=== PATIENT | male | born 1945 | race African-American/Black ===

== ENCOUNTER 2018-12-14 19:29 | Observation (INO) ==
[2018-12-14] MEDS ORDERED: LABETALOL 20 MG/4 ML SYRINGE IV STA ×2 (20:04→21:06)
[2018-12-14 20:19] LABS: Basophils % 0.4 % (0.0-0.8); Eosinophils # 0.2 10*3/uL (0.0-0.87); Eosinophils % 2.2 % (0.00-10.9); Hematocrit 46.1 VOL% (42.0-52.0); Hemoglobin 14.7 GM/DL (14.0-18.0); Immature Granulocytes % 0.4 %; Immature Granulocytes Absolute 0.03 #; Lymphocytes # 2.1 10*3/uL (1.4-4.0); Lymphocytes % 30.6 % (21.2-54.2); Mean Corpuscular HGB Conc 31.9 GM/DL (32-36); Mean Corpuscular Volume 75.7 FL (87-102); Mean Platelet Volume 10.5 FL (9.6-12.0); Neutrophils % 55.4 % (38.7-73.9); Platelet Count 199 T/CUMM (130-400); Red Blood Count 6.09 MC/CUMM (3.8-5.5); Red Cell Distribution Width 16.8 % (9.3-17.3); White Blood Count 6.7 T/CUMM (4-12)
[2018-12-14 20:25] LABS: Apearance,Urine CLEAR (Clear); Bacteria,Urine Occasional /HPF (Few); Bilirubin,Urine Negative (Negative); Blood, Urine Small mg/dL (Negative); Glucose,Urine (UA) Negative (Negative); Ketones,Urine 5 mg/dL (Negative); Mucus,Urine Occasional /LPF (Occasional); Nitrite,Urine Negative (Negative); Protein,Urine 30 MG/DL; RBC,Urine 7 /HPF (0-4); Squamous Epithelial Cell,Urine Occasional /HPF (0-10); Urine Color Amber (Yellow); Urine Specific Gravity 1.026 (1.001-1.035); WBC,Urine 3 /HPF (0-6)
[2018-12-14 20:29] LABS: Barbiturates Screen,Urine Negative (Negative); Benzodiazepines Screen,Urine Negative (Negative); Cannabinoid Screen,Urine Negative (Negative); Opiate Screen,Urine Negative (Negative); Phencyclidine Screen,Urine Negative (Negative)
[2018-12-14 20:54] LABS: Albumin 3.9 G/DL (3.4-5.0); Bilirubin,Total 1.1 MG/DL (0.2-1.0); Calcium 9.5 MG/DL (8.5-10.1); Osmolality,Calculated 290.1 MOS/KG (273-304); Thyroid Stimulating Hormone 1.17 uIU/ml (0.358-3.74); Total Protein 8.7 G/DL (6.4-8.3)
[2018-12-15] MEDS ORDERED: fentaNYL 100 MCG/2 ML VIAL ONE (02:28)
[2018-12-15] MEDS ORDERED: ONDANSETRON 4 MG/2 ML VIAL IV PRN (05:49)
[2018-12-15] MEDS ORDERED: ACETAMINOPHEN 325 MG TABLET PO PRN (05:49)
[2018-12-15] MEDS: ENOXAPARIN 40 MG/0.4 ML SYRINGE SUBCUT SCH (08:28)
[2018-12-15] MEDS: carvediloL 25 MG TABLET PO SCH ×2 (08:29→17:03)
[2018-12-15] MEDS: ASPIRIN EC 81 MG TABLET PO SCH (08:29)
[2018-12-15] MEDS: POTASSIUM CHLORIDE 10 MEQ TABLET PO SCH (08:29)
[2018-12-15] MEDS: amLODIPine 10 MG TABLET PO SCH (08:29)
[2018-12-15] MEDS: THIAMINE 200 MG/2 ML VIAL IV SCH ×3 (08:30→20:59)
[2018-12-15] MEDS: SODIUM CHLORIDE 0.9% 1,000 ML IV SCH (15:44)
[2018-12-15] MEDS: TERAZOSIN 5 MG CAPSULE PO SCH (20:59)
[2018-12-16 04:46] LABS: Basophils % 0.5 % (0.0-0.8); Eosinophils # 0.2 10*3/uL (0.0-0.87); Eosinophils % 3.9 % (0.00-10.9); Hemoglobin 12.7 GM/DL (14.0-18.0); Immature Granulocytes % 0.2 %; Immature Granulocytes Absolute 0.01 #; Lymphocytes # 1.6 10*3/uL (1.4-4.0); Lymphocytes % 38.2 % (21.2-54.2); Mean Corpuscular HGB Conc 31.8 GM/DL (32-36); Mean Corpuscular Volume 75.9 FL (87-102); Monocytes % 9.2 % (1.7-12.7); Platelet Count 140 T/CUMM (130-400); Red Blood Count 5.27 MC/CUMM (3.8-5.5); Red Cell Distribution Width 15.6 % (9.3-17.3); White Blood Count 4.1 T/CUMM (4-12)
[2018-12-16 05:06] LABS: Calcium 8.8 MG/DL (8.5-10.1); Risk Ratio 5.21; VLDL CHOLESTEROL 23.4 MG/DL
[2018-12-16] MEDS: SODIUM CHLORIDE 0.9% 1,000 ML IV SCH ×2 (05:30→21:46)
[2018-12-16] MEDS: ASPIRIN EC 81 MG TABLET PO SCH (08:48)
[2018-12-16] MEDS: amLODIPine 10 MG TABLET PO SCH (08:48)
[2018-12-16] MEDS: carvediloL 25 MG TABLET PO SCH ×2 (08:48→16:48)
[2018-12-16] MEDS: POTASSIUM CHLORIDE 10 MEQ TABLET PO SCH (08:48)
[2018-12-16] MEDS: ENOXAPARIN 40 MG/0.4 ML SYRINGE SUBCUT SCH (08:49)
[2018-12-16] MEDS: THIAMINE 200 MG/2 ML VIAL IV SCH ×3 (08:49→21:47)
[2018-12-16] MEDS: cloNIDine 0.1 MG TABLET PO PRN (18:24)
[2018-12-16] MEDS: TERAZOSIN 5 MG CAPSULE PO SCH (21:47)
[2018-12-17] MEDS: cloNIDine 0.1 MG TABLET PO PRN ×2 (04:33→12:06)
[2018-12-17 04:52] LABS: Basophils % 0.5 % (0.0-0.8); Eosinophils # 0.2 10*3/uL (0.0-0.87); Eosinophils % 4.3 % (0.00-10.9); Hematocrit 39.8 VOL% (42.0-52.0); Hemoglobin 12.3 GM/DL (14.0-18.0); Immature Granulocytes % 0.5 %; Immature Granulocytes Absolute 0.02 #; Lymphocytes # 1.8 10*3/uL (1.4-4.0); Lymphocytes % 43.9 % (21.2-54.2); Mean Corpuscular HGB Conc 30.9 GM/DL (32-36); Mean Corpuscular Volume 76.4 FL (87-102); Mean Platelet Volume 10.5 FL (9.6-12.0); Monocytes % 7.9 % (1.7-12.7); Neutrophils % 42.9 % (38.7-73.9); Platelet Count 145 T/CUMM (130-400); Red Blood Count 5.21 MC/CUMM (3.8-5.5); Red Cell Distribution Width 15.8 % (9.3-17.3); White Blood Count 4.2 T/CUMM (4-12)
[2018-12-17 05:29] LABS: Calcium 8.3 MG/DL (8.5-10.1)
[2018-12-17] MEDS ORDERED: THIAMINE 200 MG/2 ML VIAL IV SCH (09:00)
[2018-12-17] MEDS: SODIUM CHLORIDE 0.9% 1,000 ML IV SCH (09:29)
[2018-12-17] MEDS: amLODIPine 10 MG TABLET PO SCH (09:40)
[2018-12-17] MEDS: ASPIRIN EC 81 MG TABLET PO SCH (09:40)
[2018-12-17] MEDS: carvediloL 25 MG TABLET PO SCH (09:40)
[2018-12-17] MEDS: POTASSIUM CHLORIDE 10 MEQ TABLET PO SCH (09:40)
[2018-12-17] MEDS: ENOXAPARIN 40 MG/0.4 ML SYRINGE SUBCUT SCH (09:42)
[2018-12-17 12:55] VITALS: BP 124/88
== END 2018-12-17 13:31 | disposition home or self-care (01) ==
LOC: EDBD → EDUNIT# → N.EDINP 19:29 → N.ED 19:29 → N.4E 12-15 03:44
PROVIDERS: ADMIT Internal Medicine; ATTEND Internal Medicine